=== PATIENT | male | born 1955 | race Two or more races ===

== ENCOUNTER → 2018-03-01 13:33 | Outpatient (CLI) | payer OTHER ==
[~2018-03-01 13:33] MED LIST: GLIPIZIDE XL10 MG; JANUVIA100 MG; LIPIODOL10 ML; LOPRESSOR5 MG/5 ML
== END | disposition home or self-care (01) ==
LOC: EKG 13:33
DX: Z01.810 Encounter for preprocedural cardiovascular examination (principal)

== ENCOUNTER 2018-03-01 17:49 | Outpatient (CLI) | payer OTHER ==
[2018-03-02] MEDS ORDERED: LIPIODOL10 ML (10:16)
[2018-03-02] MEDS ORDERED: LOPRESSOR5 MG/5 ML (10:16)
[2018-03-02] MEDS ORDERED: GLIPIZIDE XL10 MG (10:16)
[2018-03-02] MEDS ORDERED: JANUVIA100 MG (10:17)
== END 2018-03-01 17:55 | disposition home or self-care (01) ==
LOC: LAB 17:49
DX: D69.6 Thrombocytopenia, unspecified (principal)

== ENCOUNTER 2018-03-02 06:51 | Inpatient (IN) | payer OTHER ==
[~2018-03-02] VITALS: Ht 172.7 cm; Wt 230.0 kg
[2018-03-02] MEDS ORDERED: LIPIODOL10 ML (10:16)
[2018-03-02] MEDS ORDERED: GLIPIZIDE XL10 MG (10:16)
[2018-03-02] MEDS ORDERED: LOPRESSOR5 MG/5 ML (10:16)
[2018-03-02] MEDS ORDERED: JANUVIA100 MG (10:17)
[2018-03-11] MEDS ORDERED: OXYC1TAB9 PO (12:02)
[2018-03-11] MEDS ORDERED: HYOSCYAMINE0.125 M1 SL (12:02)
[2018-03-11] MEDS ORDERED: GAS RELIEF125 MG PO (12:03)
== END 2018-03-11 15:47 | disposition home health service (06) | DRG 331 ==
LOC: O/R 03-08 05:45 → SURG 03-08 05:45 → SURH 03-08 06:49 → SURG 03-08 13:59
PROVIDERS: Surgery
PROC: 0DTP4ZZ Resection of Rectum, Percutaneous Endoscopic Approach (ICD-10-PCS; 2018-03-08)
PROC: 07TC4ZZ Resection of Pelvis Lymphatic, Percutaneous Endoscopic Approach (ICD-10-PCS; 2018-03-08)
PROC: 0D1B4Z4 Bypass Ileum to Cutaneous, Percutaneous Endoscopic Approach (ICD-10-PCS; 2018-03-08)
PROC: 0DJD8ZZ Inspection of Lower Intestinal Tract, Via Natural or Artificial Opening Endoscopic (ICD-10-PCS; 2018-03-08)
PROC: 0DTN4ZZ Resection of Sigmoid Colon, Percutaneous Endoscopic Approach (ICD-10-PCS; principal; 2018-03-08 09:30)
DX: C20 Malignant neoplasm of rectum (principal); R59.0 Localized enlarged lymph nodes; E11.9 Type 2 diabetes mellitus without complications; I11.9 Hypertensive heart disease without heart failure; E78.00 Pure hypercholesterolemia, unspecified; D50.0 Iron deficiency anemia secondary to blood loss (chronic); D69.59 Other secondary thrombocytopenia

== ENCOUNTER 2018-07-01 11:35 | Outpatient (CLI) | payer OTHER ==
[~2018-07-01 11:35] MED LIST changes: +GAS RELIEF125 MG PO; +HYOSCYAMINE0.125 M1 SL; +OXYC1TAB9 PO
== END 2018-07-01 11:41 | disposition home or self-care (01) ==
LOC: RX STUDY 11:35
DX: C20 Malignant neoplasm of rectum (principal); Z93.2 Ileostomy status

== ENCOUNTER 2018-07-15 09:45 | Inpatient (IN) | payer OTHER ==
[~2018-07-15] VITALS: Ht 177.8 cm; Wt 101.2 kg
[2018-07-15] MEDS ORDERED: PROTONIX40 M1 (13:05)
[2018-07-24] MEDS ORDERED: OXYC1TAB9 PO (14:09)
== END 2018-07-24 16:55 | disposition home or self-care (01) | DRG 330 ==
LOC: O/R 07-21 08:50 → SURG 07-21 08:50 → SURH 07-21 09:45 → SURG 07-21 19:19
PROVIDERS: ADMIT Surgery
PROC: 0DQB4ZZ Repair Ileum, Percutaneous Endoscopic Approach (ICD-10-PCS; principal; 2018-07-21 15:00)
DX: Z43.2 Encounter for attention to ileostomy (principal); C20 Malignant neoplasm of rectum; E11.9 Type 2 diabetes mellitus without complications; I11.9 Hypertensive heart disease without heart failure; E78.00 Pure hypercholesterolemia, unspecified; D50.0 Iron deficiency anemia secondary to blood loss (chronic)